=== PATIENT | male | born 2000 | race Caucasian/White ===

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

== ENCOUNTER → 2021-01-03 | Outpatient (CLI) | payer OTHER | LOC: MRI 12-16 08:30 | DX: H91.93 Unspecified hearing loss, bilateral (principal) | CPT/HCPCS: 70553; A9577 ==

== ENCOUNTER → 2021-01-03 | Outpatient (CLI) | payer OTHER | LOC: EXRD 12-22 08:00 | DX: R03.0 Elevated blood-pressure reading, without diagnosis of hypertension (principal) | CPT/HCPCS: 93975 ==

== ENCOUNTER 2021-06-03 18:27 | Emergency (ER) | payer OTHER ==
[2021-06-03 19:47] LABS: HEMOGLOBIN 16.8 gm/dl (14.0-17.5); RED BLOOD COUNT 5.9 M/UL (4.20-5.50); WHITE BLOOD COUNT 12.2 K/UL (4.5-11.0)
[2021-06-03 20:08] LABS: BUN/CREATININE RATIO 12 (0-10)
[2021-06-03] MEDS ORDERED: LOPRESSOR 25 MG25 MG PO (23:01)
== END 2021-06-03 23:14 | disposition home or self-care (01) ==
LOC: ER1 18:27
PROVIDERS: Preventive Medicine Occupational Medicine
DX: R00.2 Palpitations (principal)
CPT/HCPCS: 71045; 80053; 81001; 82550; 82553; 83690; 83874; 83880; 84439; 84443; 84484; 85025; 85652; 86140; 87086; 93005; 99285

== ENCOUNTER → 2021-07-19 | Outpatient (CLI) | payer OTHER ==
[~2021-07-19] MED LIST changes: +LOPRESSOR 25 MG25 MG PO
== END ==
LOC: ECHO 07-15 13:15 → HEART 5 07-20 08:30
DX: R00.0 Tachycardia, unspecified (principal); I08.1 Rheumatic disorders of both mitral and tricuspid valves
CPT/HCPCS: ECHO; 93306

== ENCOUNTER → 2022-01-02 | Outpatient (CLI) | payer OTHER | LOC: MRI 13:00 → EMI 13:23 → MRI 14:00 | DX: G37.9 Demyelinating disease of central nervous system, unspecified (principal); G43.009 Migraine without aura, not intractable, without status migrainosus; R53.83 Other fatigue; G60.9 Hereditary and idiopathic neuropathy, unspecified | CPT/HCPCS: 70553; 72156; A9577 ==

== ENCOUNTER → 2022-02-24 | Outpatient (CLI) | payer OTHER ==
[~2022-02-24] VITALS: Ht 162.6 cm; Wt 72.6 kg
[2022-02-24 11:03] LABS: RBC (AUTOMATED) 100 10^6 (0); WBC (AUTOMATED 6 10^3 (0-5)
[2022-02-24 11:15] LABS: GLUCOSE,CSF 55 mg/dL (50-80); TOTAL PROTEIN,CSF 52 mg/dL (20-45)
[2022-02-28 16:11] LABS: VDRL, CSF Non Reactive (Non Rea:<1:1)
== END ==
LOC: RAD 09:00
PROVIDERS: Psychiatry & Neurology Neurology
DX: M32.10 Systemic lupus erythematosus, organ or system involvement unspecified (principal)
CPT/HCPCS: 82040; 82784; 82945; 83916; 84157; 86592; 86617; 89051